=== PATIENT | male | born 1950 | race Hispanic/Latino ===

== ENCOUNTER → 2025-02-09 | Outpatient (CLI) | payer OTHER, MEDICARE ==
--- NOTE | 2025-02-09 14:41 | HMCIMG ---
US ARTERIAL BILAT LOW EXT DUPL HISTORY: Type 2 diabetes mellitus with other circulatory complications type 2 diabetes TECHNIQUE: Duplex Doppler evaluation of the arteries of both legs performed. FINDINGS: Grayscale images revealed intimal calcifications throughout both lower extremities. Peak systolic velocities and wave patterns were documented, as follows: RIGHT LEG Common femoral: 241 cm/s Triphasic there is 50-80% stenosis of the right common femoral artery. 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 This is amenable for angioplasty Otherwise remaining study demonstrate Normal bilateral lower extremity arterial Doppler.
== END | disposition home or self-care (01) ==
LOC: EDUNIT# 01-20 14:00 → RAH 13:22
PROVIDERS: ATTEND Internal Medicine
DX: I70.201 Unspecified atherosclerosis of native arteries of extremities, right leg (principal); E11.59 Type 2 diabetes mellitus with other circulatory complications; I25.119 Atherosclerotic heart disease of native coronary artery with unspecified angina pectoris
CPT/HCPCS: 93925

== ENCOUNTER → 2025-02-10 | Outpatient (CLI) | payer OTHER, MEDICARE ==
--- NOTE | 2025-02-10 18:43 | HMCIMG ---
EXAM: MR Brain Without IV Contrast CLINICAL HISTORY: Dementia. TECHNIQUE: Multiplanar multi-sequence MRI of the brain. CONTRAST: No. COMPARISON: None provided. FINDINGS: Diffuse age-related cerebral atrophy is evident by dilated lateral ventricles, prominent cisterns, and sulcal spaces. Tiny, nonspecific FLAIR hyperintense focus noted in the right centrum semiovale. No evidence of acute cortical infarction, hemorrhage, mass or mass effect. No abnormal extra-axial fluid collection is present. The marrow signal within the skull base and calvarium is intact. Mild bilateral maxillary sinusitis. Fluid signal noted in the bilateral mastoid air cells, likely reactive effusion versus mastoiditis. IMPRESSION: No acute intracranial abnormality or mass. Mild diffuse age-related cerebral atrophy. Tiny, nonspecific FLAIR hyperintense focus in the right centrum semiovale /[place]
== END | disposition home or self-care (01) ==
LOC: RAH 10:34
PROVIDERS: ATTEND Internal Medicine
DX: G31.9 Degenerative disease of nervous system, unspecified (principal); J32.0 Chronic maxillary sinusitis; F03.90 Unspecified dementia, unspecified severity, without behavioral disturbance, psychotic disturbance, mood disturbance, and anxiety
CPT/HCPCS: 70551